=== PATIENT | male | born 1990 | race Caucasian/White ===

== ENCOUNTER → 2022-07-30 15:48 | Outpatient (CLI) | payer OTHER, SELFPAY ==
--- NOTE | ~2022-07-30 | CT_ITS ---
EXAMINATION: CT sinus wo con DATE: 07/30/2022 16:08 INDICATION: Chronic pansinusitis. Frequent sinus infections. Loss of taste and smell. TECHNIQUE: Computed tomography (CT) of the paranasal sinuses was performed without contrast. Iterativ e reconstruction technique was employed. Exam dose: 296.82 mGy-cm total exam DLP. COMPARISON: None There is leftward bowing of the nasal septum. There is very prominent soft tissue swelling of the inf erior pedicular middle nasal turbinates and extensive opacification of both nasal cavities including both middle meatuses. There is opacification of both ostiomeatal units. FINDINGS: There is minimal focal soft tissue thickening at the superolateral aspect of the right frontal sinus. There is mild bilateral soft tissue thickening of the frontoethmoid areas. There is extensive opacification of ethmoid air cells bilaterally. There is very prominent mucoperiosteal thickening of the right maxillary sinus and moderate soft tiss ue thickening of the left maxillary sinus with possible 1.5 x 1.7 cm inferior left maxillary mucous r etention cyst or polyp. There is severe mucoperiosteal thickening of the right sphenoid sinus and mild posterior mucoperioste al thickening of the left sphenoid sinus. The mastoid air cells are normally developed and aerated bilaterally. IMPRESSION: Extensive paranasal sinus disease, minimally involving the frontal sinuses and left sphe noid sinus, with severe involvement of the ethmoid air cells, right maxillary and sphenoid sinuses in particular Complete opacification of the ostiomeatal units Extensive soft tissue thickening of the nasal turbinates, nasal cavities and middle meatuses Reviewed, dictated and finalized at [facility]. Reviewed, dictated and finalized at [facility]. IMPRESSION: Extensive paranasal sinus disease, minimally involving the frontal sinuses and left sphenoid sinus, with severe involvement of the ethmoid air ce lls, right maxillary and sphenoid sinuses in particular Complete opacification of the ostiomeatal units Extensive soft tissue thickening of the nasal turbinates, nasal cavities and mi ddle meatuses
== END ==
PROVIDERS: PCP Family Medicine; Visit Provider Otolaryngology
DX: J32.4 Chronic pansinusitis (principal)
CPT/HCPCS: 70486